=== PATIENT | female | born 1985 | race Caucasian/White ===

== ENCOUNTER 2021-11-04 13:56 | Inpatient (IN) ==
[2021-11-04] MEDS ORDERED: SODIUM CHLORIDE 0.9% 1000ML 1,000 ML IV ONE (15:26)
[2021-11-04] MEDS ORDERED: CEFEPIME 2,000 MG/20 ML VIAL IV STA (15:46)
[2021-11-04] MEDS ORDERED: ACETAMINOPHEN 500 MG TAB PO STA (15:50)
[2021-11-04 15:58] LABS: INR 1.1 (0.9-1.1); Partial Thromboplastin Ratio 0.9; Partial Thromboplastin Time 26.1 Seconds (21.0-31.0); Prothrombin Time 11.4 Seconds (9.0-12.0)
[2021-11-04 16:13] LABS: Dohle Bodies 1+; Hematocrit (blood only) 31.3 % (34.1-44.9); Hemoglobin 10.5 g/dl (12.0-16.0); Mean Corpuscular Hemoglobin 28.6 pg (25.0-34.0); Mean Corpuscular Hgb Conc 33.5 g/dL (32.0-36.0); Mean Corpuscular Volume 85.3 fL (80.0-100.0); Mean Platelet Volume 9.9 fL (9.4-12.3); Platelet Count 177 K/uL (130-400); RDW Coefficient of Variation 12.2 % (11.5-14.5); RDW Standard Deviation 37.8 fL (36.4-46.3); Red Blood Count 3.67 M/uL (3.93-5.22); Toxic Granulation 1+
[2021-11-04 16:15] LABS: Troponin I High Sensitivity 2.6 pg/ml (0-14)
[2021-11-04 16:17] LABS: Albumin Globulin Ratio 1.3 (0.9-2); Albumin Level 3.7 gm/dl (3.4-5.0); BUN Creatinine Ratio 14.5 (10-20); Bilirubin,Total 0.9 mg/dl (0.2-1.0); Calcium 8.4 mg/dl (8.5-10.1); Creatinine Clr Calc Pharmacy 104.6 ml/min; Est GFR (African American) 105.1 ml/min; Est GFR (Non-African American) 90.7 ml/min; Globulin 2.9 gm/dl (2.5-4.0); Magnesium 1.3 mg/dl (1.7-2.4); Potassium 3.7 mmol/L (3.5-5.1); Total Protein 6.6 gm/dl (6.0-8.3)
[2021-11-04 16:29] LABS: Basophils # (auto) 0.02 K/uL (0-0.2); Basophils % (auto) 2.3 %; Eosinophils % (auto) 11.6 %; Immature Granulocytes # (auto) 0.01 K/uL (0.00-0.02); Immature Granulocytes % (auto) 1.2 %; Lymphocytes # (auto) 0.28 K/uL (1.2-3.4); Lymphocytes % (auto) 32.6 %; Monocytes # (auto) 0.15 K/uL (0.24-0.82); Monocytes % (auto) 17.4 %; Neutrophils % (auto) 34.9 %; White Blood Count 0.86 K/ul (4.8-10.8)
[2021-11-04 16:31] LABS: Appearance Urine Clear (Clear); Bacteria Urine Automated 1+ (Negative); Bilirubin Urine Negative (Negative); Blood Urine Negative (Negative); Epithelial Cell Urine Auto >30 /lpf (0-5); Glucose Urine UA Negative (Negative); Ketones Urine Negative (Negative); Leukocyte Esterase Urine Negative (Negative); Nitrite Urine Negative (Negative); Protein Urine Trace (Negative); RBC Urine Automated 0-4 /hpf (0-4); Specific Gravity Urine 1.024 (1.000-1.030); Urobilinogen Urine Negative (Negative)
[2021-11-04 16:32] LABS: Color Urine Dark Yellow
[2021-11-04 17:06] LABS: Influenza A virus by PCR Negative (Neg); Influenza B virus by PCR Negative (Neg); RSV by PCR Negative (Neg); SARS CoV2 RNA(COVID-19) InHosp NEGATIVE (Negative)
--- NOTE | 2021-11-04 17:47 | History & Physical Report ---
Date of Service November 04, 2021 Assessment & Plan (1) Neutropenic fever: Plan: Patient presents neutropenic with reported fever at home - currently afebrile - start on Merepenem, Vancomycin, Azithromycin - Blood and Urine cultures are pending, MRSA swab pending - CXR negative for acute process - Obtain CT A/P for evaluation of typhlitis or other source - PCT 0.56, CRP- pending, ESR 7 - WBC 0.86, Neut0.30- with toxic vacuole 1+ - ANC 0.58 - Confirmed with Haematology/oncology- Filgrastim 480mcg subq now- likely repeat in AM - Await results of culture and imaging- de-escalate when appropriate (2) History of substance abuse: Plan: Continue her methadone (3) Cancer of right breast: Plan: Currently undergoing chemotherapy with haematology/oncology - if tamoxifen not on formulary may have to bring from home (4) Anxiety: Plan: Continue with citalopram and doxepin History of Present Illness Primary Care Provider: Gab Smart MD 36 YOF with medical history of: Substance abuse (on Methadone), Anxiety, Bilateral Mastectomy (10/05/21) with axillary dissection with expanders, medi- port placement, Grade II invasive ductal carcinoma ER/CA positive and HER-2 negative. Right axillary node positive for mets. Patient recently started chemotherapy and received 1 cycle so far. She appears to be receiving adjuvant chemo of dose dense AC followed by Taxol- she also reports that she received WBC stimulation shot following her chemotherapy last cycle. Patient comes to the EMD today for complaints of fever measured at home at 102.4, she took Tylenol with onset of chills and rigors that started at 11:30 and continued for a few hours. She notified her oncological team. She received a CXR and then faustino to to oncology office where she had labs drawn to include blood cultures, urine culture, CBC, BMP. The patient was noted to be neutropenic. She was then referred to the EMD. In the EMD the patient had repeat of CBC which reveals again neutropenia, she was given a dose of Meropenem and Tylenol. Hospitalist service was consulted for admission. Will obtain CT with IV contrast of abdomen and pelvis for source evaluation. Patient denies any coughs, nasal congestion, weakness, drainage from her incisions, urinary symptoms, as well as abd pain and/or diarrhea. Patient will be admitted and will start on broad antibiotic coverage for neutropenic fever. Await cultures and imaging. COVID/Flue/RSV test on admission is: Negative Allergies Allergy/AdvReac Type Severity Reaction Status Date / Time ciprofloxacin [Cipro] Allergy Severe SHORTNESS Verified 11/04/21 16:22 OF BREATH, hives sulfamethoxazole [Bactrim] Allergy Severe SHORTNESS Verified 11/04/21 16:22 OF BREATH, hives trimethoprim [Bactrim] Allergy Severe SHORTNESS Verified 11/04/21 16:22 OF BREATH, hives Sulfate Allergy Severe SHORTNESS Uncoded 11/04/21 16:22 OF BREATH, HIVES Home Medications Medication Instructions Recorded Confirmed Type doxepin 50 mg capsule 100 mg PO HS 10/22/21 11/04/21 History methadone 10 mg/mL oral concentrate 70 mg PO QAM 10/22/21 11/04/21 History diphenhydramine HCl 50 mg capsule 50 mg PO HS PRN Sleep 10/24/21 11/04/21 History citalopram 20 mg tablet 20 mg PO HS 11/04/21 11/04/21 History lidocaine-prilocaine 2.5 %-2.5 % 1 applic topical DIRECTED PRN 11/04/21 11/04/21 History topical cream Pain ondansetron HCl 8 mg tablet 8 mg PO Q8H PRN NAUSEA/VOMITING 11/04/21 11/04/21 History prochlorperazine maleate 10 mg 10 mg PO Q6H PRN NAUSEA/VOMITING 11/04/21 11/04/21 History tablet tamoxifen 20 mg tablet 20 mg PO QAM 11/04/21 11/04/21 History Past Med/Surg History Medical History (Updated 11/04/21 @ 17:55 by CHRISTIAN Ornelas) Anxiety Cancer of right breast (~06/2021) S/p right mastectomy with right axillary dissection and left mastectomy with immediate reconstruction with tissue expanders 09/29/21 Right limb restriction Depression History of seizure R/t drug withdrawal (~) "opiates and benzo withdrawal" no problems since History of substance abuse Hx of renal calculi Scoliosis "Mild" Thyroid disease Hx of hypothyroidism -- no current issues. no medications. Surgical History H/O lithotripsy History of liver biopsy History of mastectomy (09/25/21) bilateral mastectomy with right axilla lymph node removal with bilateral spacers placed. History of wisdom tooth extraction Port-A-Cath in place (10/24/21) Insertion Access Port Left Subclavian Vein(Left) - Stephen Martinez MD, FACS Family History Aunt Breast cancer Mother No problems noted. Father No problems noted. Grandfather (Paternal) Oral cancer Grandmother (Maternal) Coronary heart disease Other Cancer Heart disease Social History Smoking Status: Never smoker Tobacco Type: Cigarettes and E-cigarettes / Vaping Age Started Using Tobacco: 15; Age Quit Using Tobacco: 28; packs per day: 0.5; Years Smoked: 10; Number of Years Since Quit: 8; Second Hand Exposure: Yes; Hx Alcohol Use: Yes Alcohol type: beer and hard liquor Alcohol Intake Frequency: Monthly or Less Hx Substance Use: Yes (no drugs since 2006. currently on methadone daily) Prescribed Medications: Marijuana, Opiates and Painkillers Non-Prescribed Medications: Heroin Last Used Substance Other:: 2006 Preferred Language: Algerian Communication Ability: Effective Railroad Car[employer] Required: No Beliefs That Will Affect Care: None marital status: Current Living Situation: Family current occupational status: unemployed How many Children do You have: 3 Feels Safe at Home: Yes caffeine: Yes (1cup/day) Physical Activity Frequency: 3-4 Times per Week Do you think of yourself as: straight/heterosexual Gender Identity: Female Assistive Devices: Contacts Review of Systems Review of Systems: REVIEW OF SYSTEMS: Constitutional: (+) fever, sweats or chills Eyes: No diplopia, no worsening or blurred vision ENT: normal hearing, no trouble swallowing Respiratory: No cough, sputum, dyspnea at rest or on exertion Cardiovascular: No chest pain, tightness or palpitations Abdomen: No pain, nausea, vomiting, diarrhea or constipation Musculoskeletal: No joint pain, calf pain, swelling Neurologic: No weakness, numbness/tingling, or balance problems Psychiatric: (+) anxiety or depression Skin: No rash or itch Physical Exam Physical Exam: PHYSICAL EXAM: General: awake, alert, no apparent distress, warm to touch Head: Normocephalic, atraumatic ENT: PERRL, EOMI, no pharyngeal exudate, mucous membranes moist Neuro: AAO x 3, speech clear and appropriate, strength intact bilaterally 5/5, negative Kernig/Brudzinski, sensation intact and equal all extremities and dermatomes, no pronator drift Chest: equal rise and fall of the chest, no accessory muscle use, no heaves or thrills, Clear to auscultation, negative for egophonay, on room air, Cardiac: Regular rate and rhythm, telemetry reviewed, skin warm dry, cap refill <3 seconds, peripheral pulses +2 no JVD, no murmur, no JVD, no edema GI: NABS x 4 quadrants, soft, nontender to palpation, no rebound, guarding or tenderness : Spontaneously voiding, no pain, no CVA tenderness, Extremities: Normal inspection, no peripheral edema or erythema, calfs nontender to palpation Psych: Normal mood and affect Skin: no rash or erythema, clean appearing Mediport site and no erythema of surgical incisions Results & Data Results & Data ([facility]) Vital Signs (Past 12 Hours) Vital Signs Temp Pulse Pulse Resp BP BP Pulse Ox 11/04/21 15:57 84 19 104/64 98 11/04/21 14:35 37.5 C 118 H 18 98/66 L 98 O2 Del Method 11/04/21 15:57 Room Air 11/04/21 14:35 Room Air Laboratory Results Home Medications doxepin 50 mg capsule 100 mg PO HS 10/22/21 [History Confirmed 11/04/21] methadone 10 mg/mL oral concentrate 70 mg PO QAM 10/22/21 [History Confirmed 11/04/21] diphenhydramine HCl 50 mg capsule 50 mg PO HS PRN Sleep 10/24/21 [History Confirmed 11/04/21] citalopram 20 mg tablet 20 mg PO HS 11/04/21 [History Confirmed 11/04/21] lidocaine-prilocaine 2.5 %-2.5 % topical cream 1 applic topical DIRECTED PRN Pain 11/04/21 [History Confirmed 11/04/21] ondansetron HCl 8 mg tablet 8 mg PO Q8H PRN NAUSEA/VOMITING 11/04/21 [History Confirmed 11/04/21] prochlorperazine maleate 10 mg tablet 10 mg PO Q6H PRN NAUSEA/VOMITING 11/04/21 [History Confirmed 11/04/21] tamoxifen 20 mg tablet 20 mg PO QAM 11/04/21 [History Confirmed 11/04/21] Diagnostic Findings Att Phy:Maribeth Hoyt MD Diagnosis:C50.111 Peg Phy:Gab Smart MD Service Date:11/04/21 [facility] Phy: Interpreting Phy:Yoseph CuellarAdmit Phy: Ordering Phy:Maribeth Hoyt MD cc: ~ XR chest 2V PA/lateral HISTORY: 36 years-old Female FEVER acute fever in a patient with history of breast cancer COMPARISON: PET CT 10/30/2021, chest radiograph 10/24/2021 TECHNIQUE: PA and lateral views of the chest FINDINGS: Bilateral breast tissue expanders are redemonstrated. Cardiomediastinal and hilar silhouettes are within normal limits. Left subclavian [id number] catheter. Surgical clips of the axilla. No pneumothorax, pleural effusion, airspace consolidation or overt pulmonary edema. Bones of the chest appear grossly intact. IMPRESSION: No acute process. CTA/P pending Medications Administered Home Medications doxepin 50 mg capsule 100 mg PO HS 10/22/21 [History Confirmed 11/04/21] methadone 10 mg/mL oral concentrate 70 mg PO QAM 10/22/21 [History Confirmed 11/04/21] diphenhydramine HCl 50 mg capsule 50 mg PO HS PRN Sleep 10/24/21 [History Confirmed 11/04/21] citalopram 20 mg tablet 20 mg PO HS 11/04/21 [History Confirmed 11/04/21] lidocaine-prilocaine 2.5 %-2.5 % topical cream 1 applic topical DIRECTED PRN Pain 11/04/21 [History Confirmed 11/04/21] ondansetron HCl 8 mg tablet 8 mg PO Q8H PRN NAUSEA/VOMITING 11/04/21 [History Confirmed 11/04/21] prochlorperazine maleate 10 mg tablet 10 mg PO Q6H PRN NAUSEA/VOMITING 11/04/21 [History Confirmed 11/04/21] tamoxifen 20 mg tablet 20 mg PO QAM 11/04/21 [History Confirmed 11/04/21] ECG Additional Comments: Sinus tachycardia Possible Left atrial enlargement Nonspecific T wave abnormality Abnormal ECG No previous ECGs available Code Status & VTE Plan Code Status CODE: FULL VTE: SCDS, ambulation Supervising Physician Co-Signing Physician Notes Reviewed nurse practitioner, agree with his note above. Patient is being treated for intraductal carcinoma of the breast. Presents here with no neutropenic fever. For now, will treat with broad-spectrum antibiotics, panculture. Monitor CBC. PG Care Time/CCT Total # of Minutes Spent Total Time Spent with Patient: Total time spent is greater than 50% in coordination of care (as documented) at patient's floor/unit and/or counseling patient: Coding Level of Care Code 09675 Initial Inpt Care Lvl 3 Diagnoses Neutropenic fever D70.9; R50.81 History of substance abuse F19.11 Cancer of right breast C50.911 Anxiety F41.9
--- NOTE | 2021-11-04 19:09 | CT Scan Report ---
CT abd pelvis wo con CLINICAL HISTORY: neutropenic fever . Status post mastectomy. COMPARISON STUDY: 07/18/2021 and PET/CT from 10/30/2021 CT DOSE: 749.88 mGy.cm TECHNIQUE: Standard CT of the Abdomen and Pelvis was performed without IV contrast. The patient did not receive oral contrast. A dose lowering technique was utilized adhering to the principles of STEPHEN Cortes. FINDINGS: Lung base: The lung bases are clear. The patient is status post bilateral breast implants. Abdominal cavity: There is no evidence for abdominal mass, adenopathy or ascites. Liver: The liver is homogeneous in attenuation on these limited noncontrast images.. Spleen: The spleen is homogeneous in attenuation on these limited noncontrast images. Pancreas: The pancreas is homogeneous in attenuation on these limited noncontrast images. Gall Bladder: The gallbladder is distended with no evidence for cholelithiasis, wall thickening or pe richolecystic edema.. Adrenal glands: The adrenal glands are normal in size and attenuation on these limited noncontrast im ages. Kidneys: The kidneys are homogeneous in attenuation on these limited noncontrast images. There is no evidence for gross renal mass, calculus or hydronephrosis bilaterally. Bowel: The bowel loops are normally placed within the abdomen and pelvis without evidence for dilatat ion or obstruction. There is no evidence for mass lesion. There is mild fecal stasis without evidence for impaction or obstruction. There are no inflammatory changes present. There is no evidence for fr ee air. Bladder: There is no evidence for focal bladder wall thickening, calculus or diverticulum. : There is no evidence for pelvic mass or adenopathy. Vasculature: There is no evidence for focal aneurysmal dilatation of the abdominal aorta. Osseous structures: There is no acute osseous pathology. IMPRESSION: 1. Mild fecal stasis without impaction or obstruction. 2. Otherwise, no acute intra-abdominal or pelvic abnormality on these limited noncontrast images. ACT 112: Negative or not required by law. Electronically signed by: Glen Ray M.D. 11/04/2021 7:07 PM
[2021-11-04] MEDS ORDERED: FILGRASTIM 480 MCG/1.6 ML VIAL SC ONE (19:30)
--- NOTE | 2021-11-04 20:26 | Emergency Department Note ---
History of Present Illness General Chief complaint: Fever Stated complaint: NEUTROPENIC FEVER, REF BY Time Seen by Provider: 11/04/21 15:25 History of Present Illness Provider complaint: Neutropenic fever Onset (ago): day(s) 1 Maximum Pain Intensity: 4 36-year-old female on chemotherapy for breast cancer sent in by [facility] for neutropenic fever. Patient has breast cancer stage II and had a fever of 102 at home 100.6 after Tylenol. Patient was seen at the cancer center had blood cultures urine culture chest x-ray and blood work done there and was found to be neutropenic and referred to the emergency department for admission. Home Medications Medication Instructions Recorded Confirmed Type doxepin 50 mg capsule 100 mg PO HS 10/22/21 11/04/21 History methadone 10 mg/mL oral concentrate 70 mg PO QAM 10/22/21 11/04/21 History diphenhydramine HCl 50 mg capsule 50 mg PO HS PRN Sleep 10/24/21 11/04/21 History citalopram 20 mg tablet 20 mg PO HS 11/04/21 11/04/21 History lidocaine-prilocaine 2.5 %-2.5 % 1 applic topical DIRECTED PRN 11/04/21 11/04/21 History topical cream Pain ondansetron HCl 8 mg tablet 8 mg PO Q8H PRN NAUSEA/VOMITING 11/04/21 11/04/21 History prochlorperazine maleate 10 mg 10 mg PO Q6H PRN NAUSEA/VOMITING 11/04/21 11/04/21 History tablet tamoxifen 20 mg tablet 20 mg PO QAM 11/04/21 11/04/21 History Allergies Allergy/AdvReac Type Severity Reaction Status Date / Time ciprofloxacin [Cipro] Allergy Severe SHORTNESS Verified 11/04/21 16:22 OF BREATH, hives sulfamethoxazole [Bactrim] Allergy Severe SHORTNESS Verified 11/04/21 16:22 OF BREATH, hives trimethoprim [Bactrim] Allergy Severe SHORTNESS Verified 11/04/21 16:22 OF BREATH, hives Sulfate Allergy Severe SHORTNESS Uncoded 11/04/21 16:22 OF BREATH, HIVES Past Med/Surg History Medical History Anxiety Cancer of right breast (~06/2021) S/p right mastectomy with right axillary dissection and left mastectomy with immediate reconstruction with tissue expanders 09/29/21 Right limb restriction Depression History of seizure R/t drug withdrawal (~) "opiates and benzo withdrawal" no problems since History of substance abuse Hx of renal calculi Scoliosis "Mild" Thyroid disease Hx of hypothyroidism -- no current issues. no medications. Surgical History H/O lithotripsy History of liver biopsy History of mastectomy (09/25/21) bilateral mastectomy with right axilla lymph node removal with bilateral spacers placed. History of wisdom tooth extraction Port-A-Cath in place (10/24/21) Insertion Access Port Left Subclavian Vein(Left) - Stephen aMrtinez MD, FACS Family History Aunt Breast cancer Mother No problems noted. Father No problems noted. Grandfather (Paternal) Oral cancer Grandmother (Maternal) Coronary heart disease Other Cancer Heart disease Social History Smoking Status: Never smoker Tobacco Type: Cigarettes and E-cigarettes / Vaping Age Started Using Tobacco: 15; Age Quit Using Tobacco: 28; packs per day: 0.5; Years Smoked: 10; Number of Years Since Quit: 8; Second Hand Exposure: Yes; Hx Alcohol Use: Yes Alcohol type: beer and hard liquor Alcohol Intake Frequency: Monthly or Less Hx Substance Use: Yes (no drugs since 2006. currently on methadone daily) Prescribed Medications: Marijuana, Opiates and Painkillers Non-Prescribed Medications: Heroin Last Used Substance Other:: 2006 Preferred Language: Albanian Communication Ability: Effective Sales Project Administrator Required: No Beliefs That Will Affect Care: None marital status: Current Living Situation: Family current occupational status: unemployed How many Children do You have: 3 Feels Safe at Home: Yes caffeine: Yes (1cup/day) Physical Activity Frequency: 3-4 Times per Week Do you think of yourself as: straight/heterosexual Gender Identity: Female Assistive Devices: Contacts Review of Systems A total of 10 systems reviewed and were otherwise negative Physical Exam Vital Signs Vital Signs - 24 hr 11/04/21 14:35 11/04/21 15:57 11/04/21 17:00 Temperature 37.5 C Temperature Source Oral Pulse Rate 118 H Pulse Rate [Finger] 84 68 Pulse Rhythm [Finger] Regular Regular Pulse Strength [Finger] Normal Normal Respiratory Rate 18 19 16 Respiratory Effort / Characteristics Non-Labored Spontaneous Non-Labored Spontaneous Respiratory Depth Normal Normal Respiratory Pattern Regular Blood Pressure 98/66 L Blood Pressure [Left Arm] 104/64 91/61 L Blood Pressure Mean 76 Blood Pressure Mean [Left Arm] 77 71 Blood Pressure Position [Left Arm] Lying Sitting Pulse Oximetry 98 98 98 Oxygen Delivery Method Room Air Room Air Room Air Sepsis Recent Fever Within 48 Hours Yes Sepsis New/Unexplained Change in Mental Status No Sepsis Action Taken by Nursing No Action Required 11/04/21 15:26 11/04/21 15:26 11/04/21 17:26 Temperature Temperature Source Pulse Rate 68 Pulse Rate [Finger] Pulse Rhythm [Finger] Pulse Strength [Finger] Respiratory Rate 19 19 Respiratory Effort / Characteristics Non-Labored Spontaneous Non-Labored Spontaneous Respiratory Depth Respiratory Pattern Blood Pressure Blood Pressure [Left Arm] Blood Pressure Mean Blood Pressure Mean [Left Arm] Blood Pressure Position [Left Arm] Pulse Oximetry 98 98 Oxygen Delivery Method Room Air Room Air Sepsis Recent Fever Within 48 Hours Sepsis New/Unexplained Change in Mental Status Sepsis Action Taken by Nursing 11/04/21 19:00 Temperature Temperature Source Pulse Rate Pulse Rate [Finger] 70 Pulse Rhythm [Finger] Regular Pulse Strength [Finger] Normal Respiratory Rate 16 Respiratory Effort / Characteristics Non-Labored Spontaneous Respiratory Depth Normal Respiratory Pattern Regular Blood Pressure Blood Pressure [Left Arm] 95/61 L Blood Pressure Mean Blood Pressure Mean [Left Arm] 72 Blood Pressure Position [Left Arm] Pulse Oximetry 98 Oxygen Delivery Method Room Air Sepsis Recent Fever Within 48 Hours Sepsis New/Unexplained Change in Mental Status Sepsis Action Taken by Nursing Physical Exam GENERAL: She is oriented to person, place, and time. She appears well-developed and well-nourished. She does not appear distressed. HENT: Exam performed. -Head: Normocephalic and atraumatic. -Right Ear: External ear normal. No mastoid tenderness. -Left Ear: External ear normal. No mastoid tenderness. -Mouth/Throat: The oropharynx is clear and moist. No trismus in the jaw. No dental abscesses or uvula swelling. No oropharyngeal exudate or tonsillar abscesses. EYES: Conjunctivae and EOM are normal. Pupils are equal, round, and reactive to light. Right eye exhibits no discharge. Left eye exhibits no discharge. No scleral icterus. NECK: Normal range of motion. Neck supple. No JVD present. No spinous process tenderness present. No carotid bruit present. No rigidity. No tracheal deviation and normal range of motion present. No Brudzinski's sign and no Kernig's sign noted. CV: Normal rate, regular rhythm, normal heart sounds and intact distal pulses. There is no peripheral edema. Palpable radial pulses bue. PULM/CHEST: Effort normal and breath sounds normal. No respiratory distress. No stridor. She has no wheezes. She has no rales. -Chest Wall: She exhibits no tenderness. ABD: The abdomen is soft. Bowel sounds are normal. She has no distension. No mass is present. There is no tenderness. There is no rebound, no guarding, no Mendoza's sign and no tenderness at McBurney's point. Rovsig negative MUSC/SKEL: Normal range of motion. There is no peripheral edema, tenderness or deformity. LYMPH: No cervical adenopathy. NEURO: She is alert and oriented to person, place, and time. She has normal strength. No cranial nerve deficit or sensory deficit. Coordination and gait no rmal. GCS eye subscore is 4. GCS verbal subscore is 5. GCS motor subscore is 6. Cerebellar tests wnl. SKIN: Skin is warm and dry. She is not diaphoretic. PSYCH: She has a normal mood and affect. Behavior is normal. Judgment and thought content normal. Course Course 1525: The patient was evaluated in room C9. A complete history and physical exam was performed Cardiac monitoring: An order was placed for continuous cardiac monitoring. The monitor shows a rate of 100 with sinus rhythm Administered Medications Discontinued Medications Acetaminophen (Acetaminophen 500 Mg Tab) 1,000 mg PO NOW STA Stop: 11/04/21 15:51 Last Admin: 11/04/21 16:09 Dose: 1,000 mg Documented By: RDD Filgrastim (Filgrastim 480 Mcg/1.6 Ml Vial) 480 mcg SC ONE ONE Stop: 11/04/21 19:31 Last Admin: 11/04/21 19:33 Dose: 480 mcg Documented By: RDD Sodium Chloride (Nss 1000ml) 1,000 mls @ 999 mls/hr IV .Q1H1M ONE Stop: 11/04/21 16:26 Last Infusion: 11/04/21 17:30 Dose: 0 mls/hr Documented By: Admin: 11/04/21 16:10 Dose: 999 mls/hr Documented By: LETY Cefepime HCl (Maxipime) 2,000 mg in 20 mls @ 5 mls/min IV NOW STA; Protocol Stop: 11/04/21 15:49 Last Admin: 11/04/21 16:09 Dose: 5 mls/min Documented By: LETY Medical Decision Making Laboratory Data Result diagrams: 11/04/21 14:53 11/04/21 14:53 Lab Results 11/04/21 11/04/21 11/04/21 Range/Units 14:53 14:53 14:53 WBC 0.86 L* (4.8-10.8) K/ul RBC 3.67 L (3.93-5.22) M/uL Hgb 10.5 L (12.0-16.0) g/dl Hct 31.3 L (34.1-44.9) % MCV 85.3 (80.0-100.0) fL MCH 28.6 (25.0-34.0) pg MCHC 33.5 (32.0-36.0) g/dL RDW Std Deviation 37.8 (36.4-46.3) fL RDW Coeff of Josefina 12.2 (11.5-14.5) % Plt Count 177 (130-400) K/uL MPV 9.9 (9.4-12.3) fL Immature Gran % (Auto) 1.2 % Neut % (Auto) 34.9 % Lymph % (Auto) 32.6 % [place] % (Auto) 17.4 % Eos % (Auto) 11.6 % Baso % (Auto) 2.3 % Neut # (Auto) 0.30 L* (1.4-6.5) K/uL Lymph # (Auto) 0.28 L (1.2-3.4) K/uL [place] # (Auto) 0.15 L (0.24-0.82) K/uL Eos # (Auto) 0.10 (0-0.50) K/uL Baso # (Auto) 0.02 (0-0.2) K/uL Immature Gran # (Auto) 0.01 (0.00-0.02) K/uL Toxic Granulation 1+ Dohle Bodies 1+ ESR (0-20) mm/hr PT 11.4 (9.0-12.0) Seconds INR 1.1 (0.9-1.1) APTT 26.1 (21.0-31.0) Seconds PTT Ratio 0.9 Sodium 134 L (136-145) mmol/L Potassium 3.7 (3.5-5.1) mmol/L Chloride 104 (98-107) mmol/L Carbon Dioxide 22 (21-32) mmol/L Anion Gap 8 (3-11) BUN 12 (6-23) mg/dl Creatinine 0.83 (0.6-1.2) mg/dl Est Cr Clr Drug Dosing 104.6 ml/min Est GFR ( Amer) 105.1 ml/min Est GFR (Non-Af Amer) 90.7 ml/min BUN/Creatinine Ratio 14.5 (10-20) Glucose 120 H (70-99(Fasting)) mg/dl Lactate (0.4-2.0) mmol/L Calcium 8.4 L (8.5-10.1) mg/dl Magnesium 1.3 L (1.7-2.4) mg/dl Total Bilirubin 0.9 (0.2-1.0) mg/dl AST 11 L (13-39) U/L ALT 11 (7-52) U/L Alkaline Phosphatase 78 (34-104) U/L Troponin I High Sens 2.6 (0-14) pg/ml C-Reactive Protein (0-0.5) mg/dl Total Protein 6.6 (6.0-8.3) gm/dl Albumin 3.7 (3.4-5.0) gm/dl Globulin 2.9 (2.5-4.0) gm/dl Albumin/Globulin Ratio 1.3 (0.9-2) Procalcitonin (0-0.5) ng/ml Urine Color Urine Appearance (Clear) Urine pH (4.5-7.5) Ur Specific [place] (1.000-1.030) Urine Protein (Negative) Urine Glucose (UA) (Negative) Urine Ketones (Negative) Urine Blood (Negative) Urine Nitrite (Negative) Urine Bilirubin (Negative) Urine Urobilinogen (Negative) Ur Leukocyte Esterase (Negative) Urine WBC (Auto) (0-5) /hpf Urine RBC (Auto) (0-4) /hpf U Hyaline Cast (Auto) (0-5) /lpf U Epithel Cells (Auto) (0-5) /lpf Urine Bacteria (Auto) (Negative) SARS-CoV-2 (PCR) (Negative) Influenza Type A (PCR) (Neg) Influenza Type B (PCR) (Neg) RSV (RT-PCR) (Neg) 11/04/21 11/04/21 11/04/21 Range/Units 14:53 14:53 16:00 WBC (4.8-10.8) K/ul RBC (3.93-5.22) M/uL Hgb (12.0-16.0) g/dl Hct (34.1-44.9) % MCV (80.0-100.0) fL MCH (25.0-34.0) pg MCHC (32.0-36.0) g/dL RDW Std Deviation (36.4-46.3) fL RDW Coeff of Josefina (11.5-14.5) % Plt Count (130-400) K/uL MPV (9.4-12.3) fL Immature Gran % (Auto) % Neut % (Auto) % Lymph % (Auto) % [place] % (Auto) % Eos % (Auto) % Baso % (Auto) % Neut # (Auto) (1.4-6.5) K/uL Lymph # (Auto) (1.2-3.4) K/uL [place] # (Auto) (0.24-0.82) K/uL Eos # (Auto) (0-0.50) K/uL Baso # (Auto) (0-0.2) K/uL Immature Gran # (Auto) (0.00-0.02) K/uL Toxic Granulation Dohle Bodies ESR 7 (0-20) mm/hr PT (9.0-12.0) Seconds INR (0.9-1.1) APTT (21.0-31.0) Seconds PTT Ratio Sodium (136-145) mmol/L Potassium (3.5-5.1) mmol/L Chloride (98-107) mmol/L Carbon Dioxide (21-32) mmol/L Anion Gap (3-11) BUN (6-23) mg/dl Creatinine (0.6-1.2) mg/dl Est Cr Clr Drug Dosing ml/min Est GFR ( Amer) ml/min Est GFR (Non-Af Amer) ml/min BUN/Creatinine Ratio (10-20) Glucose (70-99(Fasting)) mg/dl Lactate 1.8 (0.4-2.0) mmol/L Calcium (8.5-10.1) mg/dl Magnesium (1.7-2.4) mg/dl Total Bilirubin (0.2-1.0) mg/dl AST (13-39) U/L ALT (7-52) U/L Alkaline Phosphatase (34-104) U/L Troponin I High Sens (0-14) pg/ml C-Reactive Protein (0-0.5) mg/dl Total Protein (6.0-8.3) gm/dl Albumin (3.4-5.0) gm/dl Globulin (2.5-4.0) gm/dl Albumin/Globulin Ratio (0.9-2) Procalcitonin 0.56 H (0-0.5) ng/ml Urine Color Urine Appearance (Clear) Urine pH (4.5-7.5) Ur Specific [place] (1.000-1.030) Urine Protein (Negative) Urine Glucose (UA) (Negative) Urine Ketones (Negative) Urine Blood (Negative) Urine Nitrite (Negative) Urine Bilirubin (Negative) Urine Urobilinogen (Negative) Ur Leukocyte Esterase (Negative) Urine WBC (Auto) (0-5) /hpf Urine RBC (Auto) (0-4) /hpf U Hyaline Cast (Auto) (0-5) /lpf U Epithel Cells (Auto) (0-5) /lpf Urine Bacteria (Auto) (Negative) SARS-CoV-2 (PCR) (Negative) Influenza Type A (PCR) (Neg) Influenza Type B (PCR) (Neg) RSV (RT-PCR) (Neg) 11/04/21 11/04/21 11/04/21 Range/Units 16:00 16:00 16:15 WBC (4.8-10.8) K/ul RBC (3.93-5.22) M/uL Hgb (12.0-16.0) g/dl Hct (34.1-44.9) % MCV (80.0-100.0) fL MCH (25.0-34.0) pg MCHC (32.0-36.0) g/dL RDW Std Deviation (36.4-46.3) fL RDW Coeff of Josefina (11.5-14.5) % Plt Count (130-400) K/uL MPV (9.4-12.3) fL Immature Gran % (Auto) % Neut % (Auto) % Lymph % (Auto) % [place] % (Auto) % Eos % (Auto) % Baso % (Auto) % Neut # (Auto) (1.4-6.5) K/uL Lymph # (Auto) (1.2-3.4) K/uL [place] # (Auto) (0.24-0.82) K/uL Eos # (Auto) (0-0.50) K/uL Baso # (Auto) (0-0.2) K/uL Immature Gran # (Auto) (0.00-0.02) K/uL Toxic Granulation Dohle Bodies ESR (0-20) mm/hr PT (9.0-12.0) Seconds INR (0.9-1.1) APTT (21.0-31.0) Seconds PTT Ratio Sodium (136-145) mmol/L Potassium (3.5-5.1) mmol/L Chloride (98-107) mmol/L Carbon Dioxide (21-32) mmol/L Anion Gap (3-11) BUN (6-23) mg/dl Creatinine (0.6-1.2) mg/dl Est Cr Clr Drug Dosing ml/min Est GFR ( Amer) ml/min Est GFR (Non-Af Amer) ml/min BUN/Creatinine Ratio (10-20) Glucose (70-99(Fasting)) mg/dl Lactate (0.4-2.0) mmol/L Calcium (8.5-10.1) mg/dl Magnesium (1.7-2.4) mg/dl Total Bilirubin (0.2-1.0) mg/dl AST (13-39) U/L ALT (7-52) U/L Alkaline Phosphatase (34-104) U/L Troponin I High Sens (0-14) pg/ml C-Reactive Protein 5.07 H (0-0.5) mg/dl Total Protein (6.0-8.3) gm/dl Albumin (3.4-5.0) gm/dl Globulin (2.5-4.0) gm/dl Albumin/Globulin Ratio (0.9-2) Procalcitonin (0-0.5) ng/ml Urine Color Dark Yellow Urine Appearance Clear (Clear) Urine pH 5.0 (4.5-7.5) Ur Specific [place] 1.024 (1.000-1.030) Urine Protein Trace H (Negative) Urine Glucose (UA) Negative (Negative) Urine Ketones Negative (Negative) Urine Blood Negative (Negative) Urine Nitrite Negative (Negative) Urine Bilirubin Negative (Negative) Urine Urobilinogen Negative (Negative) Ur Leukocyte Esterase Negative (Negative) Urine WBC (Auto) 1-5 (0-5) /hpf Urine RBC (Auto) 0-4 (0-4) /hpf U Hyaline Cast (Auto) 1-5 (0-5) /lpf U Epithel Cells (Auto) >30 H (0-5) /lpf Urine Bacteria (Auto) 1+ H (Negative) SARS-CoV-2 (PCR) NEGATIVE (Negative) Influenza Type A (PCR) Negative (Neg) Influenza Type B (PCR) Negative (Neg) RSV (RT-PCR) Negative (Neg) Imaging Data Radiologist's Impression: Abdomen/Pelvis CT 11/04/21 17:16 CT abd pelvis wo con CLINICAL HISTORY: neutropenic fever . Status post mastectomy. COMPARISON STUDY: 07/18/2021 and PET/CT from 10/30/2021 CT DOSE: 749.88 mGy.cm TECHNIQUE: Standard CT of the Abdomen and Pelvis was performed without IV contrast. The patient did not receive oral contrast. A dose lowering technique was utilized adhering to the principles of ALARA. FINDINGS: Lung base: The lung bases are clear. The patient is status post bilateral breast implants. Abdominal cavity: There is no evidence for abdominal mass, adenopathy or ascites. Liver: The liver is homogeneous in attenuation on these limited noncontrast images.. Spleen: The spleen is homogeneous in attenuation on these limited noncontrast images. Pancreas: The pancreas is homogeneous in attenuation on these limited noncontrast images. Gall Bladder: The gallbladder is distended with no evidence for cholelithiasis, wall thickening or pericholecystic edema.. Adrenal glands: The adrenal glands are normal in size and attenuation on these limited noncontrast images. Kidneys: The kidneys are homogeneous in attenuation on these limited noncontrast images. There is no evidence for gross renal mass, calculus or hydronephrosis bilaterally. Bowel: The bowel loops are normally placed within the abdomen and pelvis without evidence for dilatation or obstruction. There is no evidence for mass lesion. There is mild fecal stasis without evidence for impaction or obstruction. There are no inflammatory changes present. There is no evidence for free air. Bladder: There is no evidence for focal bladder wall thickening, calculus or diverticulum. : There is no evidence for pelvic mass or adenopathy. Vasculature: There is no evidence for focal aneurysmal dilatation of the abdominal aorta. Osseous structures: There is no acute osseous pathology. IMPRESSION: 1. Mild fecal stasis without impaction or obstruction. 2. Otherwise, no acute intra-abdominal or pelvic abnormality on these limited noncontrast images. ACT 112: Negative or not required by law. Electronically signed by: Glen Ray M.D. 11/04/2021 7:07 PM ECG Data Indication: + other (neutropenic fever) Rate (beats per minute): 112 Rhythm: + sinus tachycardia ECG Intervals/blocks: + Normal QRS, + Normal AR and + Normal QT-c ECG ST segments: + Normal ST segments MDM Narrative EMR reviewed. Patient blood work done today which showed a white blood cell count of 0.95 and absolute neutrophil count of 0.29. Lactate within normal limits. Patient treated with cefepime IV piggyback and admitted to the [facility] medical service for neutropenic fever. Impression & Plan Neutropenic fever Discharge Plan Visit Data Chief Complaint: Fever Stated Complaint: NEUTROPENIC FEVER, REF BY ED Provider: Sameer Faulkner Discharge Problem: Neutropenic fever Patient Disposition: Admitted As Inpatient Forms Stand Alone Forms: [facility] Prescriptions Prescriptions: No Action doxepin 50 mg Capsule 100 mg PO HS methadone 10 mg/mL Concentrate 70 mg PO QAM diphenhydramine HCl 50 mg Capsule 50 mg PO HS PRN (Reason: Sleep) ondansetron HCl 8 mg tablet 8 mg PO Q8H PRN (Reason: NAUSEA/VOMITING) prochlorperazine maleate 10 mg tablet 10 mg PO Q6H PRN (Reason: NAUSEA/VOMITING) lidocaine-prilocaine 2.5-2.5 % cream 1 applic topical DIRECTED PRN (Reason: Pain) citalopram 20 mg tablet 20 mg PO HS tamoxifen 20 mg tablet 20 mg PO QAM Referrals Referrals: Gab Smart MD [Primary Care Provider] -
[2021-11-04] MEDS ORDERED: ACETAMINOPHEN 500 MG TAB ONE (20:43)
[2021-11-04] MEDS ORDERED: ACETAMINOPHEN 325 MG TAB ONE (20:45)
[2021-11-04] MEDS ORDERED: TOPIRAMATE 50 MG TAB PO STA (22:09)
[2021-11-04] MEDS ORDERED: AZITHROMYCIN 500 MG in DEXTROSE 5% 250 ML IV STA (22:19)
[2021-11-04] MEDS ORDERED: VANCOMYCIN HCL 2,000 MG in SODIUM CHLORIDE 0.9% 500 ML IV STA (22:19)
[2021-11-04] MEDS ORDERED: MEROPENEM 500 MG in SYRINGE 0 ML IV SCH (22:23)
[2021-11-04] MEDS ORDERED: VANCOMYCIN CONSULT ACTIVE PRN (22:23)
[2021-11-04] MEDS ORDERED: PROCHLORPERAZINE MALEATE 10 MG TAB PO PRN (22:23)
[2021-11-04] MEDS ORDERED: AZITHROMYCIN 250 MG TAB PO ONE (22:23)
[2021-11-04] MEDS: DOXEPIN HCL 50 MG CAPSULE PO SCH (23:25)
[2021-11-04] MEDS: CITALOPRAM 20 MG TAB PO SCH (23:25)
[2021-11-04] MEDS: ENOXAPARIN INJ 40 MG/0.4 ML SYR SQ SCH (23:36)
[2021-11-05] MEDS: MAGNESIUM SULFATE / D5W 1 GM/100 ML BAG IV SCH ×4 (01:33→05:47)
[2021-11-05] MEDS: LACTATED RINGER'S 1,000 ML IV SCH ×3 (01:33→22:25)
[2021-11-05] MEDS: CEFEPIME 2,000 MG in SYRINGE 0 ML IV SCH ×4 (01:33→23:59)
[2021-11-05] MEDS: VANCOMYCIN HCL 1,250 MG in SODIUM CHLORIDE 0.9% 250 ML IV SCH ×2 (07:53→18:08)
[2021-11-05] MEDS: ONDANSETRON 4 MG OD TAB PO PRN (07:57)
[2021-11-05] MEDS ORDERED: MAGNESIUM SULFATE / D5W 1 GM/100 ML BAG IV SCH (08:00)
[2021-11-05] MEDS: ACETAMINOPHEN 325 MG TAB PO PRN ×2 (08:10→22:24)
[2021-11-05] MEDS ORDERED: METHADONE ORAL SOLN 2 MG/ML PO ONE (09:00)
[2021-11-05] MEDS ORDERED: TAMOXIFEN CITRATE 10 MG TABLET PO SCH (09:00)
--- NOTE | 2021-11-05 12:47 | Pharmacy Report ---
Pharmacy Vanc AUC Short Note - Date of Service November 05, 2021 - Assessment & Plan Assessment * 36 year old F receiving VANCOMYCIN in combination with Cefepime and Azithromycin for treatment of neutropenic fever. Vancomycin dosing per pharmacy consult. * Patient has h/o breast CA with mastectomy 09/2021, subclavian Port-A-Cath placement 10/2021, on chemotherapy. * Pertinent microbiologic data includes: Blood cx's pending, Urine cx pending * WBC 860, Neut 300, Procal 0.56 * Day # 1 of antimicrobial therapy. Plan Vancomycin * AUC/RUBEN is the preferred PK/PD target for vancomycin * AUC guided dosing is effective and associated with decreased risk of nephrotoxicity compared to traditional trough targets * 2000mg loading dose given in ED. Maintenance dose of 1250mg IV Q 12 hrs is predicated to produce a trough level of ~17 mcg/mL is predicted to achieve target AUC/RUBEN of 400-600 mg/L.hr and may be associated with a 13 % risk of nephrotoxicity * Trough level has not yet been ordered as therapy has only been ordered for 48 hrs. Will order a level if duration extended. Pharmacy will continue to follow and will adjust dose/frequency as necessary. Thank you.
[2021-11-05 13:41] LABS: Hematocrit (blood only) 24.7 % (34.1-44.9); Hemoglobin 8.4 g/dl (12.0-16.0); Mean Corpuscular Hemoglobin 28.8 pg (25.0-34.0); Mean Corpuscular Volume 84.6 fL (80.0-100.0); Mean Platelet Volume 9.8 fL (9.4-12.3); Platelet Count 118 K/uL (130-400); RDW Coefficient of Variation 12.5 % (11.5-14.5); Red Blood Count 2.92 M/uL (3.93-5.22); White Blood Count 3.15 K/ul (4.8-10.8)
[2021-11-05 13:57] LABS: BUN Creatinine Ratio 12.4 (10-20); Calcium 7.4 mg/dl (8.5-10.1); Creatinine Clr Calc Pharmacy 97.6 ml/min; Est GFR (African American) 96.6 ml/min; Est GFR (Non-African American) 83.4 ml/min; Magnesium 2.5 mg/dl (1.7-2.4); Potassium 3.2 mmol/L (3.5-5.1)
--- NOTE | 2021-11-05 14:02 | Electrocardiogram Report ---
Test Reason : Blood Pressure : / mmHG Vent. Rate : 112 BPM Atrial Rate : 112 BPM P-R Int : 164 ms QRS Dur : 082 ms QT Int : 324 ms P-R-T Axes : 049 029 025 degrees QTc Int : 442 ms Sinus tachycardia Diffuse Minor Nonspecific T wave abnormality Abnormal ECG No previous ECGs available Confirmed by Caden Carrington ([id number]) on 11/05/2021 2:02:30 PM Referred By: Maribeth Hoyt Confirmed By:Caden Carrington
[2021-11-05 14:10] LABS: Basophils # (auto) 0.05 K/uL (0-0.2); Basophils % (auto) 1.6 %; Eosinophils # (auto) 0.24 K/uL (0-0.50); Eosinophils % (auto) 7.6 %; Immature Granulocytes # (auto) 0.05 K/uL (0.00-0.02); Immature Granulocytes % (auto) 1.6 %; Lymphocytes # (auto) 0.77 K/uL (1.2-3.4); Lymphocytes % (auto) 24.4 %; Monocytes % (auto) 9.5 %; Neutrophils # (auto) 1.74 K/uL (1.4-6.5); Neutrophils % (auto) 55.3 %
[2021-11-05] MEDS ORDERED: POTASSIUM CHLORIDE CRTAB 20 MEQ TABCR PO STA (14:23)
--- NOTE | 2021-11-05 14:30 | Hospitalist Progress Note ---
Date of Service November 05, 2021 Assessment & Plan (1) Neutropenic fever: (2) Severe sepsis: (3) Cancer of right breast: (4) Hypokalemia: (5) History of substance abuse: Plan 36 year old female with breast cancer s/p bilateral mastectomy 10/05/21 currently on chemo presented to the ED 11/04 from oncology office for neutropenic fever Neutropenic fever with severe sepsis- met sepsis criteria with fever, leucopenia, tachycardia. Source unclear. CT A/P, CXR with no acute abnormality. UA unremarkable. Blood clx negative. COvid flu negative - started on vanc/cefepime/azithromycin on admission- will continue pending final clx results - continue IVF, consider midodrine if BP remains low or becomes symptomatic - s/p filgastrim 11/04 as per onc recommendations as per H&P note- neutropenia improving - Consult ID Grade II invasive ductal carcinoma right breast ([place] +, Her2 dipti -) s/p bilateral mastectomy 10/05 with axillary dissection with expanders currently on chemo - received first dose of adjuvant chemo recently- dense AC followed by taxol Anemia- probably dilutional and also due to recent chemo- No bleeding- recheck in am Hypokalemia- repleted, recheck in am Hypophosphatemia- repleted, recheck in am Hyponatremia- mild, receiving ivf, recheck in am Anxiety- on celexa, doxepin H/o substance abuse on methadone DVT ppx- sc lovenox Dispo- Medsurg Admission and Anticipated Discharge Date Admission Date: November 04, 2021 Subjective Feels much better than when she came yesterday. Headache is much better. States she finally got a hospital bed and feels better. Fever is improved. No N/V, chest pain, shortness of breath, abd pain, diarrhea, dysuria, skin rash, joint pain. States her BP is usually low but now lower than what she normally has. She states her son had sinus infection and had a shared toothbrush with the son and she is wondering if that might have started her symptoms. Physical Exam Physical Exam: General: Sitting comfortably in bed, not in distress, on room air HEENT: EOMI, RIN, MMM Chest: Port site clean. Clear breath sounds bilaterally, no wheezes or crackles CVS: Regular rate and rhythm, normal heart sounds, no murmur Abdomen: Soft, non tender, not distended, normal bowel sounds Neuro: Awake, alert, oriented, conversing well, non focal Extremities: No cyanosis, clubbing or edema Skin: No rash Results & Data Results & Data ([facility]) Vital Signs (Past 12 Hours) Vital Signs Temp Pulse Pulse Resp BP BP Pulse Ox 11/05/21 14:00 88 20 98 11/05/21 13:00 89 19 11/05/21 12:56 98 11/05/21 12:56 84 18 83/50 L 98 11/05/21 12:00 88 16 11/05/21 11:00 97 H 14 11/05/21 10:26 107 H 22 11/05/21 09:44 98 H 9 L 11/05/21 07:59 37.6 C H 111 H 17 90/59 L 98 11/05/21 06:37 90 11/05/21 04:13 94 H 17 82/53 L 97 O2 Del Method 11/05/21 14:00 11/05/21 13:00 11/05/21 12:56 11/05/21 12:56 11/05/21 12:00 11/05/21 11:00 11/05/21 10:26 11/05/21 09:44 11/05/21 07:59 Room Air 11/05/21 06:37 11/05/21 04:13 Room Air Laboratory Results Short CBC 11/04/21 11/05/21 Range/Units 14:53 13:15 WBC 0.86 L* 3.15 L (4.8-10.8) K/ul Hgb 10.5 L 8.4 L (12.0-16.0) g/dl Hct 31.3 L 24.7 L (34.1-44.9) % Plt Count 177 118 L (130-400) K/uL BMP 11/04/21 11/05/21 14:53 13:15 Sodium 134 L 132 L Potassium 3.7 3.2 L Chloride 104 103 Carbon Dioxide 22 23 BUN 12 11 Creatinine 0.83 0.89 Glucose 120 H 122 H Calcium 8.4 L 7.4 L Liver Function 11/04/21 Range/Units 14:53 Total Bilirubin 0.9 (0.2-1.0) mg/dl AST 11 L (13-39) U/L ALT 11 (7-52) U/L Alkaline Phosphatase 78 (34-104) U/L Albumin 3.7 (3.4-5.0) gm/dl Urine 11/04/21 Range/Units 16:00 Urine Color Dark Yellow Urine Appearance Clear (Clear) Urine pH 5.0 (4.5-7.5) Ur Specific [place] 1.024 (1.000-1.030) Urine Protein Trace H (Negative) Urine Glucose (UA) Negative (Negative) Medications Administered Current Inpatient Medications Acetaminophen (Acetaminophen 325 Mg Tab) 650 mg PO Q4H PRN PRN Reason: Pain or Fever Stop: 12/04/21 22:22 Last Admin: 11/05/21 08:10 Dose: 650 mg Azithromycin (Azithromycin 250 Mg Tab) 250 mg PO HS ROZINA Stop: 11/07/21 20:59 Citalopram Hydrobromide (Citalopram 20 Mg Tab) 20 mg PO HS ROZINA Stop: 12/04/21 22:22 Last Admin: 11/04/21 23:25 Dose: 20 mg Diphenhydramine HCl (Diphenhydramine Capsule 25 Mg Cap) 50 mg PO HS PRN PRN Reason: Sleep Doxepin HCl (Doxepin Hcl 50 Mg Capsule) 100 mg PO HS ROZINA Stop: 12/04/21 22:22 Last Admin: 11/04/21 23:25 Dose: 100 mg Enoxaparin Sodium (Enoxaparin Inj 40 Mg/0.4 Ml Syr) 40 mg SQ HS ROZINA Stop: 12/04/21 22:59 Last Admin: 11/04/21 23:36 Dose: Not Given Cefepime HCl 2,000 mg/ Syringe 20 mls @ 5 mls/min IV Q8H ROZINA Stop: 11/07/21 00:00 Last Admin: 11/05/21 09:34 Dose: 5 mls/min Lactated Ringer's (Lr) 1,000 mls @ 125 mls/hr IV .Q8H ROZINA Stop: 12/04/21 22:22 Last Admin: 11/05/21 12:56 Dose: 90 mls/hr Vancomycin HCl 1,250 mg/ (Sodium Chloride) 275 mls @ 200 mls/hr IV Q12H ROZINA Stop: 11/07/21 05:59 Last Infusion: 11/05/21 09:21 Dose: Infused Methadone HCl (Methadone Oral Soln 2 Mg/Ml) 70 mg PO Q24H [facility] Stop: 11/20/21 08:59 Miscellaneous Information (Vancomycin Consult Active) 1 each N/A UD PRN PRN Reason: Consult Stop: 12/04/21 22:22 Ondansetron HCl (Ondansetron 4 Mg Od Tab) 8 mg PO Q8H PRN PRN Reason: Nausea And Vomiting Stop: 12/04/21 22:36 Last Admin: 11/05/21 07:57 Dose: 8 mg Potassium Chloride (Potassium Chloride Crtab 20 Meq Tabcr) 40 meq PO NOW STA Stop: 11/05/21 14:24 Potassium Phosphate (Pot Phosphate Monobasic W/ Sod Tab) 1 tab PO QID [facility] Stop: 11/07/21 16:59 Prochlorperazine (Prochlorperazine Maleate 10 Mg Tab) 10 mg PO Q6H PRN PRN Reason: NAUSEA/VOMITING Stop: 12/04/21 22:22 Tamoxifen Citrate (Tamoxifen Citrate 10 Mg Tablet) 20 mg PO QAM [facility] Stop: 12/05/21 08:59 Last Admin: 11/05/21 07:54 Dose: Not Given
[2021-11-05] MEDS: POT PHOSPHATE MONOBASIC W/ SOD TAB PO SCH ×2 (16:37→22:24)
[2021-11-05] MEDS ORDERED: KETOROLAC TROMETHAMINE 15 MG/ML VIAL IV ONE (17:35)
[2021-11-05] MEDS ORDERED: AZITHROMYCIN 250 MG TAB PO SCH (21:00)
[2021-11-05] MEDS: ENOXAPARIN INJ 40 MG/0.4 ML SYR SQ SCH (22:22)
[2021-11-05] MEDS: DOXEPIN HCL 50 MG CAPSULE PO SCH (22:23)
[2021-11-05] MEDS: diphenhydrAMINE Capsule 25 MG CAP PO PRN (22:23)
[2021-11-05] MEDS: CITALOPRAM 20 MG TAB PO SCH (22:24)
[2021-11-05] MEDS: KETOROLAC TROMETHAMINE 15 MG/ML VIAL IV PRN (23:59)
[2021-11-06] MEDS: KETOROLAC TROMETHAMINE 15 MG/ML VIAL IV PRN ×2 (05:47→16:24)
[2021-11-06] MEDS: LACTATED RINGER'S 1,000 ML IV SCH (05:48)
[2021-11-06] MEDS: VANCOMYCIN HCL 1,250 MG in SODIUM CHLORIDE 0.9% 250 ML IV SCH ×2 (05:48→17:36)
[2021-11-06 07:16] LABS: BUN Creatinine Ratio 14.1 (10-20); Calcium 7.5 mg/dl (8.5-10.1); Creatinine Clr Calc Pharmacy 107.4 ml/min; Est GFR (African American) 102.2 ml/min; Est GFR (Non-African American) 88.2 ml/min; Phosphorus 1.7 mg/dl (2.5-4.9); Potassium 3.3 mmol/L (3.5-5.1)
[2021-11-06] MEDS: POT PHOSPHATE MONOBASIC W/ SOD TAB PO SCH ×3 (07:23→16:18)
[2021-11-06] MEDS: CEFEPIME 2,000 MG in SYRINGE 0 ML IV SCH ×2 (07:24→16:18)
[2021-11-06 07:34] LABS: Hematocrit (blood only) 23.6 % (34.1-44.9); Hemoglobin 8.2 g/dl (12.0-16.0); Mean Corpuscular Hemoglobin 28.7 pg (25.0-34.0); Mean Corpuscular Hgb Conc 34.7 g/dL (32.0-36.0); Mean Corpuscular Volume 82.5 fL (80.0-100.0); Mean Platelet Volume 9.4 fL (9.4-12.3); Platelet Count 128 K/uL (130-400); RDW Coefficient of Variation 12.4 % (11.5-14.5); RDW Standard Deviation 37.7 fL (36.4-46.3); Red Blood Count 2.86 M/uL (3.93-5.22); White Blood Count 5.98 K/ul (4.8-10.8)
[2021-11-06] MEDS ORDERED: PATIENT'S OWN CONTROLLED MED 1 PO SCH ×2 (08:00→09:00)
[2021-11-06 08:11] LABS: Basophils # (auto) 0.05 K/uL (0-0.2); Basophils % (auto) 0.8 %; Dohle Bodies 1+; Eosinophils # (auto) 0.28 K/uL (0-0.50); Eosinophils % (auto) 4.7 %; Immature Granulocytes # (auto) 0.34 K/uL (0.00-0.02); Immature Granulocytes % (auto) 5.7 %; Lymphocytes # (auto) 0.59 K/uL (1.2-3.4); Lymphocytes % (auto) 9.9 %; Monocytes # (auto) 0.45 K/uL (0.24-0.82); Monocytes % (auto) 7.5 %; Neutrophils # (auto) 4.27 K/uL (1.4-6.5); Neutrophils % (auto) 71.4 %; Toxic Granulation 2+
[2021-11-06] MEDS ORDERED: TOPIRAMATE 50 MG TAB PO SCH (09:00)
[2021-11-06] MEDS ORDERED: METHADONE ORAL SOLN 2 MG/ML PO SCH (09:00)
[2021-11-06] MEDS ORDERED: COVID19 Vaccine (Primary Series--Pfizer) 30mcg/0.3mL IM ONE (09:27)
[2021-11-06] MEDS ORDERED: POTASSIUM PHOS 3 MMOL/1 ML INFUSION IV STA (10:45)
--- NOTE | 2021-11-06 10:45 | Hospitalist Progress Note ---
Date of Service November 06, 2021 Assessment & Plan (1) Neutropenic fever: (2) Severe sepsis: (3) Cancer of right breast: (4) Hypokalemia: (5) History of substance abuse: Plan 36 year old female with breast cancer s/p bilateral mastectomy 10/05/21 currently on chemo presented to the ED 11/04 from oncology office for neutropenic fever Neutropenic fever with severe sepsis- met sepsis criteria with fever, leucopenia, tachycardia. Source unclear. CT A/P, CXR with no acute abnormality. UA unremarkable. Blood clx negative. 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 Antoine and the patient was accepted to be transferred to [facility] -We will have ultrasound of the local area to rule out any abscess and possible drainage thereafter Anemia- probably dilutional and also due to recent chemo- No bleeding- recheck in am Hypokalemia-potassium remains low at 3.3 -Supplement Hypophosphatemia- Phosphorus remains low at 1.7 Will supplement intravenously Hyponatremia- mild Anxiety- on celexa, doxepin H/o substance abuse on methadone DVT ppx- sc lovenox Dispo- Medsurg Will be transferred to [facility] sometime this afternoon Admission and Anticipated Discharge Date Admission Date: November 04, 2021 Subjective 11/06/2021 The patient was seen and examined in medical telemetry unit She has been complaining of pain in the left breast and adjoining lateral chest wall with the increasing swelling and redness Denies any nausea vomiting Still has fever which is of around 37.6 Review of Systems Review of Systems: All systems reviewed and are unremarkable except as noted below Physical Exam Physical Exam: Sitting on the bed with anxiety and pain in left breast and ad joining area Constitutional: well developed, well nourished, + ill appearing and + obese Eyes: PERRL, conjunctivae normal, anicteric sclerae ENMT: external ear and nose normal, oropharynx normal Neck: trachea midline, no thyromegaly Respiratory: no respiratory distress Auscultation: lungs clear to auscultation bilaterally Cardiovascular: Rate/Rhythm: regular rate, regular rhythm and + tachycardic Heart Sounds: normal S1 and normal S2; no murmur Extremities: no edema Chest (Breasts): Breast: + breast tenderness; + abnormal inspection of breast (Both the breast are swollen with, left more than the right with tenderness) Additional Comments: The incision sites on the left side has minimal redness with scab without any drainage. Left lateral breast and adjoining chest has lump which is very tender with adjoining redness and increasing local temperature Gastrointestinal (Abdomen): Inspection/Auscultation: normal bowel sounds; abdomen not distended Percussion/Palpation: abdomen soft; abdomen nontender Musculoskeletal: No acute arthritis involving any of the joint Neurologic: Alert, awake and oriented x3 Psychiatric: A+Ox3, euthymic affect Results & Data Results & Data ([facility]) Vital Signs (Past 12 Hours) Vital Signs Temp Pulse Pulse Resp BP Pulse Ox O2 Del Method 11/06/21 07:54 37.6 C H 101 H 18 100/68 99 Room Air 11/06/21 07:47 Room Air 11/06/21 04:06 36.9 C 99 H 20 95/66 L 95 Room Air 11/06/21 01:09 121 H 11/05/21 23:15 37.9 C H 108 H 18 97/62 L 100 Room Air Laboratory Results Short CBC 11/05/21 11/06/21 Range/Units 13:15 06:40 WBC 3.15 L 5.98 (4.8-10.8) K/ul Hgb 8.4 L 8.2 L (12.0-16.0) g/dl Hct 24.7 L 23.6 L (34.1-44.9) % Plt Count 118 L 128 L (130-400) K/uL BMP 11/05/21 11/06/21 13:15 06:40 Sodium 132 L 134 L Potassium 3.2 L 3.3 L Chloride 103 105 Carbon Dioxide 23 22 BUN 11 12 Creatinine 0.89 0.85 Glucose 122 H 118 H Calcium 7.4 L 7.5 L Medications Administered Current Inpatient Medications Acetaminophen (Acetaminophen 325 Mg Tab) 650 mg PO Q4H PRN PRN Reason: Pain or Fever Stop: 12/04/21 22:22 Last Admin: 11/05/21 22:24 Dose: 650 mg Azithromycin (Azithromycin 250 Mg Tab) 250 mg PO HS ROZINA Stop: 11/07/21 20:59 Last Admin: 11/05/21 22:24 Dose: 250 mg Citalopram Hydrobromide (Citalopram 20 Mg Tab) 20 mg PO HS ROZINA Stop: 12/04/21 22:22 Last Admin: 11/05/21 22:24 Dose: 20 mg Diphenhydramine HCl (Diphenhydramine Capsule 25 Mg Cap) 50 mg PO HS PRN PRN Reason: Sleep Last Admin: 11/05/21 22:23 Dose: 50 mg Doxepin HCl (Doxepin Hcl 50 Mg Capsule) 100 mg PO HS ROZINA Stop: 12/04/21 22:22 Last Admin: 11/05/21 22:23 Dose: 100 mg Enoxaparin Sodium (Enoxaparin Inj 40 Mg/0.4 Ml Syr) 40 mg SQ HS ROZINA Stop: 12/04/21 22:59 Last Admin: 11/05/21 22:22 Dose: 40 mg Cefepime HCl 2,000 mg/ Syringe 20 mls @ 5 mls/min IV Q8H ROZINA Stop: 11/07/21 00:00 Last Admin: 11/06/21 07:24 Dose: 5 mls/min Lactated Ringer's (Lr) 1,000 mls @ 125 mls/hr IV .Q8H ROZINA Stop: 12/04/21 22:22 Last Admin: 11/06/21 05:48 Dose: 125 mls/hr Vancomycin HCl 1,250 mg/ (Sodium Chloride) 275 mls @ 200 mls/hr IV Q12H ROZINA Stop: 11/07/21 05:59 Last Infusion: 11/06/21 07:16 Dose: Infused Ketorolac Tromethamine (Ketorolac Tromethamine 15 Mg/Ml Vial) 15 mg IV Q6H PRN PRN Reason: Pain Stop: 11/10/21 23:34 Last Admin: 11/06/21 05:47 Dose: 15 mg Methadone HCl (Methadone Oral Soln 2 Mg/Ml) 70 mg PO DAILY [facility] Stop: 11/20/21 08:59 Last Admin: 11/06/21 07:42 Dose: 70 mg Miscellaneous Information (Vancomycin Consult Active) 1 each N/A UD PRN PRN Reason: Consult Stop: 12/04/21 22:22 Non-Formulary Medication (Patient's Own Controlled Med 1) 1 each PO Q24H [facility] Stop: 11/20/21 07:59 Last Admin: 11/06/21 07:43 Dose: 1 ea Ondansetron HCl (Ondansetron 4 Mg Od Tab) 8 mg PO Q8H PRN PRN Reason: Nausea And Vomiting Stop: 12/04/21 22:36 Last Admin: 11/05/21 07:57 Dose: 8 mg Potassium Phosphate (Pot Phosphate Monobasic W/ Sod Tab) 1 tab PO QID [facility] Stop: 11/07/21 16:59 Last Admin: 11/06/21 07:23 Dose: 1 tab Prochlorperazine (Prochlorperazine Maleate 10 Mg Tab) 10 mg PO Q6H PRN PRN Reason: NAUSEA/VOMITING Stop: 12/04/21 22:22 Last Admin: 11/06/21 07:23 Dose: 10 mg Tamoxifen Citrate (Tamoxifen Citrate 10 Mg Tablet) 20 mg PO QAM [facility] Stop: 12/05/21 08:59 Last Admin: 11/05/21 07:54 Dose: Not Given Topiramate (Topiramate 50 Mg Tab) 50 mg PO QAM [facility] Stop: 12/06/21 08:59 Last Admin: 11/06/21 07:23 Dose: 50 mg
--- NOTE | 2021-11-06 10:56 | Ultrasound Report ---
US breast LT limited CLINICAL HISTORY: R/O Abscess left lat chest wall -breast COMPARISON STUDY: PET/CT October 30, 2021. TECHNIQUE: Sonography of the left breast was performed. FINDINGS: This exam was technically difficult given pain during the ultrasound. There is fluid surro unding the left breast implant. This fluid appears anechoic. Sterility cannot be assessed by ultrasou nd. No additional fluid collections were identified within the left breast. Subcutaneous edema is not ed. IMPRESSION: Fluid surrounding the left breast implant, as described above. Sterility cannot be asses sed by ultrasound. No additional fluid collections identified. ACT 112: Negative or not required by law. Electronically signed by: Ej Choe M.D. 11/06/2021 10:53 AM
[2021-11-06] MEDS ORDERED: POTASSIUM PHOSPHATE 24 MMOL in SODIUM CHLORIDE 0.9% 500 ML IV ONE (11:30)
[2021-11-06] MEDS: ACETAMINOPHEN 325 MG TAB PO PRN ×2 (11:46→19:35)
--- NOTE | 2021-11-06 13:47 | Discharge Summary ---
Date of Service November 06, 2021 Admission HPI Per Admitting Provider 36 YOF with medical history of: Substance abuse (on Methadone), Anxiety, Bilateral Mastectomy (10/05/21) with axillary dissection with expanders, medi- port placement, Grade II invasive ductal carcinoma ER/CA positive and HER-2 negative. Right axillary node positive for mets. Patient recently started chemotherapy and received 1 cycle so far. She appears to be receiving adjuvant chemo of dose dense AC followed by Taxol- she also reports that she received WBC stimulation shot following her chemotherapy last cycle. Patient comes to the EMD today for complaints of fever measured at home at 102.4, she took Tylenol with onset of chills and rigors that started at 11:30 and continued for a few hours. She notified her oncological team. She received a CXR and then faustino to to oncology office where she had labs drawn to include blood cultures, urine culture, CBC, BMP. The patient was noted to be neutropenic. She was then referred to the EMD. In the EMD the patient had repeat of CBC which reveals again neutropenia, she was given a dose of Meropenem and Tylenol. Hospitalist service was consulted for admission. Will obtain CT with IV contrast of abdomen and pelvis for source evaluation. Patient denies any coughs, nasal congestion, weakness, drainage from her incisions, urinary symptoms, as well as abd pain and/or diarrhea. Patient will be admitted and will start on broad antibiotic coverage for neutropenic fever. Await cultures and imaging. COVID/Flue/RSV test on admission is: Negative Admission Exam Per Admitting Provider Physical Exam: PHYSICAL EXAM: General: awake, alert, no apparent distress, warm to touch Head: Normocephalic, atraumatic ENT: PERRL, EOMI, no pharyngeal exudate, mucous membranes moist Neuro: AAO x 3, speech clear and appropriate, strength intact bilaterally 5/5, negative Kernig/Brudzinski, sensation intact and equal all extremities and dermatomes, no pronator drift Chest: equal rise and fall of the chest, no accessory muscle use, no heaves or thrills, Clear to auscultation, negative for egophonay, on room air, Cardiac: Regular rate and rhythm, telemetry reviewed, skin warm dry, cap refill <3 seconds, peripheral pulses +2 no JVD, no murmur, no JVD, no edema GI: NABS x 4 quadrants, soft, nontender to palpation, no rebound, guarding or tenderness : Spontaneously voiding, no pain, no CVA tenderness, Extremities: Normal inspection, no peripheral edema or erythema, calfs nontender to palpation Psych: Normal mood and affect Skin: no rash or erythema, clean appearing Mediport site and no erythema of surgical incisions Principal Diagnosis Neutropenic fever, surgical site infection with bilateral breast implant, CT of the breast status post surgery with ongoing chemo Discharge Exam Sitting on the bed with anxiety and pain in left breast and adjoining area Constitutional well developed, well nourished, + ill appearing and + obese Eyes PERRL, conjunctivae normal, anicteric sclerae ENMT external ear and nose normal, oropharynx normal Neck trachea midline, no thyromegaly Respiratory no respiratory distress Auscultation: lungs clear to auscultation bilaterally Cardiovascular Rate/Rhythm: regular rate, regular rhythm and + tachycardic Heart Sounds: normal S1 and normal S2; no murmur Extremities: no edema Chest (Breasts) Breast: + breast tenderness; + abnormal inspection of breast (Both the breast are swollen with, left more than the right with tenderness) Gastrointestinal (Abdomen) Inspection/Auscultation: normal bowel sounds; abdomen not distended Percussion/Palpation: abdomen soft; abdomen nontender Psychiatric A+Ox3, euthymic affect Discharge Data Allergies Allergy/AdvReac Type Severity Reaction Status Date / Time ciprofloxacin [Cipro] Allergy Severe SHORTNESS Verified 11/04/21 16:22 OF BREATH, hives sulfamethoxazole [Bactrim] Allergy Severe SHORTNESS Verified 11/04/21 16:22 OF BREATH, hives trimethoprim [Bactrim] Allergy Severe SHORTNESS Verified 11/04/21 16:22 OF BREATH, hives Sulfate Allergy Severe SHORTNESS Uncoded 11/04/21 16:22 OF BREATH, HIVES Consultations 11/04/21 16:10 ED Decision to Admit Stat 11/05/21 14:24 Consult Infectious Diseases Routine 11/06/21 09:29 Burn CD for patient Routine Ordered Studies 11/04/21 17:16 CT abd pelvis wo con Stat 11/06/21 09:24 US breast LT limited Urgent Hospital Course (1) Neutropenic fever: (2) Severe sepsis: (3) Cancer of right breast: (4) Hypokalemia: (5) History of substance abuse: Plan 36 year old female with breast cancer s/p bilateral mastectomy 10/05/21 currently on chemo presented to the ED 11/04 from oncology office for neutropenic fever Neutropenic fever with severe sepsis- met sepsis criteria with fever, leucopenia, tachycardia. Source unclear. CT A/P, CXR with no acute abnormality. UA unremarkable. Blood clx negative. COvid flu negative - started on vanc/cefepime/azithromycin on admission- will continue pending final clx results - continue IVF, consider midodrine if BP remains low or becomes symptomatic -Received 1 dose of filgastrim 11/04 as per onc recommendations as per H&P note -Neutropenia has resolved -ID evaluation is pending Bilateral surgical site infection with possible involvement of the prosthesis mostly on the left side Grade II invasive ductal carcinoma right breast (ER CA +, Her2 dipti -) s/p bilateral mastectomy 10/05 with axillary dissection with expanders currently on chemo - received first dose of adjuvant chemo recently- dense AC followed by taxol -Increasing swelling of the breasts more on the left than the right -Lumpiness involving left lateral chest wall adjoining the breast and redness of the adjoining area which is very tender -Discussed with on-call plastic surgeon Dr. Antoine and the patient was accepted to be transferred to [facility] -We will have ultrasound of the local area to rule out any abscess and possible drainage thereafter Anemia- probably dilutional and also due to recent chemo- No bleeding- recheck in am Hypokalemia-potassium remains low at 3.3 -Supplement Hypophosphatemia- Phosphorus remains low at 1.7 Will supplement intravenously Hyponatremia- mild Anxiety- on celexa, doxepin H/o substance abuse on methadone DVT ppx- sc lovenox Dispo- Medsurg Will be transferred to [facility] sometime this afternoon Total Time Total Time Spent Total Time Spent (In Minutes): 45 minutes Discharge Plan Discharge Items Patient Disposition: Transfer Acute Care Hospital Reason For Visit: NEUTROPENIC FEVER Discharge Diagnosis: Neutropenic fever, surgical site infection with bilateral breast implant, CT of the breast status post surgery with ongoing chemo Condition on Discharge: Fair Activity: Resume your previous activity Non-emergency contact: Primary Care Provider Call non-emergency contact if: you have any medication questions and your symptoms worsen Follow-up/Referrals: Pilgram,Gab A., MD [Primary Care Provider] - (Please make an appointment with your PCP within 7 days following discharge from the facility) Diet: Regular Addtl Attending Provider Instructions: Your home medications are on hold temporarily All of your inpatient medications were continued as below: Current Inpatient Medications Acetaminophen (Acetaminophen 325 Mg Tab) 650 mg PO Q4H PRN PRN Reason: Pain or Fever Stop: 12/04/21 22:22 Last Admin: 11/05/21 22:24 Dose: 650 mg Azithromycin (Azithromycin 250 Mg Tab) 250 mg PO HS ROZINA Stop: 11/07/21 20:59 Last Admin: 11/05/21 22:24 Dose: 250 mg Citalopram Hydrobromide (Citalopram 20 Mg Tab) 20 mg PO HS ROZINA Stop: 12/04/21 22:22 Last Admin: 11/05/21 22:24 Dose: 20 mg Diphenhydramine HCl (Diphenhydramine Capsule 25 Mg Cap) 50 mg PO HS PRN PRN Reason: Sleep Last Admin: 11/05/21 22:23 Dose: 50 mg Doxepin HCl (Doxepin Hcl 50 Mg Capsule) 100 mg PO HS ROZINA Stop: 12/04/21 22:22 Last Admin: 11/05/21 22:23 Dose: 100 mg Enoxaparin Sodium (Enoxaparin Inj 40 Mg/0.4 Ml Syr) 40 mg SQ HS ROZINA Stop: 12/04/21 22:59 Last Admin: 11/05/21 22:22 Dose: 40 mg Cefepime HCl 2,000 mg/ Syringe 20 mls @ 5 mls/min IV Q8H ROZINA Stop: 11/07/21 00:00 Last Admin: 11/06/21 07:24 Dose: 5 mls/min Lactated Ringer's (Lr) 1,000 mls @ 125 mls/hr IV .Q8H ROZINA Stop: 12/04/21 22:22 Last Admin: 11/06/21 05:48 Dose: 125 mls/hr Vancomycin HCl 1,250 mg/ (Sodium Chloride) 275 mls @ 200 mls/hr IV Q12H ROZINA Stop: 11/07/21 05:59 Last Infusion: 11/06/21 07:16 Dose: Infused Ketorolac Tromethamine (Ketorolac Tromethamine 15 Mg/Ml Vial) 15 mg IV Q6H PRN PRN Reason: Pain Stop: 11/10/21 23:34 Last Admin: 11/06/21 05:47 Dose: 15 mg Methadone HCl (Methadone Oral Soln 2 Mg/Ml) 70 mg PO DAILY [facility] Stop: 11/20/21 08:59 Last Admin: 11/06/21 07:42 Dose: 70 mg Miscellaneous Information (Vancomycin Consult Active) 1 each N/A UD PRN PRN Reason: Consult Stop: 12/04/21 22:22 Non-Formulary Medication (Patient's Own Controlled Med 1) 1 each PO Q24H [facility] Stop: 11/20/21 07:59 Last Admin: 11/06/21 07:43 Dose: 1 ea Ondansetron HCl (Ondansetron 4 Mg Od Tab) 8 mg PO Q8H PRN PRN Reason: Nausea And Vomiting Stop: 12/04/21 22:36 Last Admin: 11/05/21 07:57 Dose: 8 mg Potassium Phosphate (Pot Phosphate Monobasic W/ Sod Tab) 1 tab PO QID [facility] Stop: 11/07/21 16:59 Last Admin: 11/06/21 07:23 Dose: 1 tab Prochlorperazine (Prochlorperazine Maleate 10 Mg Tab) 10 mg PO Q6H PRN PRN Reason: NAUSEA/VOMITING Stop: 12/04/21 22:22 Last Admin: 11/06/21 07:23 Dose: 10 mg Tamoxifen Citrate (Tamoxifen Citrate 10 Mg Tablet) 20 mg PO QAM [facility] Stop: 12/05/21 08:59 Last Admin: 11/05/21 07:54 Dose: Not Given Topiramate (Topiramate 50 Mg Tab) 50 mg PO QAM [facility] Stop: 12/06/21 08:59 Last Admin: 11/06/21 07:23 Dose: 50 mg Pending Studies at Discharge: No Stand-Alone Forms: [facility] Skilled Items Patient informed of condition?: Yes DNR: No Discharge Level of Care: Other Communicable Disease: No Discharge Prognosis: Deteriorating Lines: Franz Urinary Catheter: No Medications and DC Order Prescriptions: Continued doxepin 50 mg Capsule 100 mg PO HS methadone 10 mg/mL Concentrate 70 mg PO QAM diphenhydramine HCl 50 mg Capsule 50 mg PO HS PRN (Reason: Sleep) ondansetron HCl 8 mg tablet 8 mg PO Q8H PRN (Reason: NAUSEA/VOMITING) prochlorperazine maleate 10 mg tablet 10 mg PO Q6H PRN (Reason: NAUSEA/VOMITING) lidocaine-prilocaine 2.5-2.5 % cream 1 applic topical DIRECTED PRN (Reason: Pain) citalopram 20 mg tablet 20 mg PO HS tamoxifen 20 mg tablet 20 mg PO QAM topiramate 25 mg capsule, sprinkle PO Discharge Orders: Discharge Order (Routine); Ordered 11/06/21 Ordered By: Lana Taylor Admission Data Admit Date/Time: 11/04/21 19:10 Attending Provider: Lana Taylor Admit Provider: Mukul Patel Primary Care Provider: Gab Smart Other Providers: Mukul Patel ; Bear Awad ; Merline Quinones ; Ran Ruff I. ; Hill Zepeda II ; Leah Flores ; Ishan Gaines ; Augustine Bustamante ; Ochoa Mendez
[2021-11-06] MEDS: ONDANSETRON 4 MG OD TAB PO PRN (19:13)
[2021-11-06] MEDS: diphenhydrAMINE Capsule 25 MG CAP PO PRN (19:13)
== END 2021-11-06 19:52 | disposition short-term general hospital (02) | DRG 862 ==
LOC: ED 13:56 → SUATTDRO 19:10 → 2W 19:10 → EDINP 19:10 → 2W 11-05 20:44